=== PATIENT | male | born 1995 | race African-American/Black ===

== ENCOUNTER 2017-04-10 19:51 | Emergency (ER) | payer MEDICARE, OTHER ==
[~2017-04-10] VITALS: Ht 180.3 cm; Wt 59.9 kg
[2017-04-10] MEDS ORDERED: KETOROLAC 30 MG/ML VIAL. ONE (21:47)
[2017-04-10] MEDS ORDERED: diphenhydrAMINE 50 MG/ML VIAL ONE (21:49)
[2017-04-11 00:15] LABS: CALCIUM 8.3 mg/dL (8.5-10.1); CREATININE 0.6 mg/dL (0.7-1.3); GFR 168.5; POTASSIUM 4.3 mmol/L (3.5-5.1)
[2017-04-11] MEDS ORDERED: ALPRAZolam 0.25 MG TABLET PO ONE (00:15)
--- NOTE | 2017-04-11 01:24 | PHYS DOC ---
Adult General Chief Complaint Chief Complaint: SHORTNESS OF BREATH HPI HPI 22-year-old male with history of lupus now presents the emergency department complaining of anterior chest wall soreness reproducible with movement and palpation. Patient is requesting pain medicine. He denies shortness of breath. No exertional chest pain. Denies pleuritic pain. No productive cough or fever. Patient has no other complaints Review of Systems Review of Systems Constitutional: Denies fever or chills [] Eyes: Denies change in visual acuity, redness, or eye pain [] HENT: Denies nasal congestion or sore throat [] Respiratory: Denies cough or shortness of breath [] Cardiovascular: No additional information not addressed in HPI [] GI: Denies abdominal pain, nausea, vomiting, bloody stools or diarrhea [] : Denies dysuria or hematuria [] Musculoskeletal: Denies back pain or joint pain [] Integument: Denies rash or skin lesions [] Neurologic: Denies headache, focal weakness or sensory changes [] Endocrine: Denies polyuria or polydipsia [] All other systems were reviewed and found to be within normal limits, except as documented in this note. Current Medications Current Medications Current Medications Medications (Trade) Dose Ordered Sig/Oni Start Time Stop Time Status Last Admin Dose Admin Alprazolam (Xanax) 1 mg 1X ONCE 04/11/17 00:15 04/11/17 00:16 DC 04/11/17 00:20 1 MG Diphenhydramine HCl (Benadryl) 50 mg STK-MED ONCE 04/10/17 21:49 04/10/17 21:50 DC Ketorolac Tromethamine (Toradol) 30 mg STK-MED ONCE 04/10/17 21:47 04/10/17 21:48 DC Allergies Allergies Allergies Coded Allergies Type Severity Reaction Last Updated Verified NSAIDS (Non-Steroidal Anti-Inflamma Allergy Mild 04/10/17 Yes Physical Exam Physical Exam Well-appearing patient with butterfly malar rash, anterior chest wall with easily reproducible chest wall tenderness to light palpation. No bruising, rash , or crepitus. No bony tenderness or deformity Constitutional: Well developed, well nourished, no acute distress, non-toxic appearance. [] HENT: Normocephalic, atraumatic, bilateral external ears normal, oropharynx moist, no oral exudates, nose normal. [] Eyes: PERRLA, EOMI, conjunctiva normal, no discharge. [] Neck: Normal range of motion, no tenderness, supple, no stridor. [] Cardiovascular:Heart rate regular rhythm, no murmur [] Lungs & Thorax: Bilateral breath sounds clear to auscultation [] Abdomen: Bowel sounds normal, soft, no tenderness, no masses, no pulsatile masses. [] Skin: Warm, dry, no erythema, no rash. [] Back: No tenderness, no CVA tenderness. [] Extremities: No tenderness, no cyanosis, no clubbing, ROM intact, no edema. [] Neurologic: Alert and oriented X 3, normal motor function, normal sensory function, no focal deficits noted. [] Psychologic: Affect normal, judgement normal, mood normal. [] Current Patient Data Lab Results Laboratory Tests Test 04/10/17 23:39 Sodium Level 136 mmol/L (136-145) Potassium Level 4.3 mmol/L (3.5-5.1) Chloride Level 100 mmol/L (98-107) Carbon Dioxide Level 29 mmol/L (21-32) Anion Gap 7 (6-14) Blood Urea Nitrogen 17 mg/dL (8-26) Creatinine 0.6 mg/dL (0.7-1.3) L Estimated GFR (Cockcroft-Gault) 168.5 Glucose Level 97 mg/dL (70-99) Calcium Level 8.3 mg/dL (8.5-10.1) L EKG EKG EKG with normal sinus rhythm at 86 normal axis no STEMI[] interpreted by me Radiology/Procedures Radiology/Procedures Chest x-ray no acute disease interpreted by me[] Course & Med Decision Making Course & Med Decision Making Pertinent Labs and Imaging studies reviewed. (See chart for details) Signs and symptoms consistent with chest wall pain easily reproducible. Full workup unremarkable. She well-appearing and stable on reevaluation prior to discharge. No further workup or treatment indicated patient agrees with outpatient follow-up and strict return precautions given [] Dragon Disclaimer Dragon Disclaimer This electronic medical record was generated, in whole or in part, using a voice recognition dictation system. Departure Departure: Impression: Primary Impression: Chest wall pain Disposition: HOME, SELF-CARE Condition: IMPROVED Referrals: NON,STAFF (PCP) Patient Instructions: Chest Wall Pain, [id number] Additional Instructions: You've been experiencing chest wall pain. Your EKG chest x-ray and labs were unremarkable. Follow-up with your doctor in the morning and return immediately for new severe worsening symptoms JOAQUÍN CHAMPION MD Apr 11, 2017 01:24
[2017-04-11 01:28] VITALS: BP 142/96
[2017-04-11] MEDS ORDERED: IV NORMAL SALINE 1,000ML 1,000 ML IV ONE (04:45)
[2017-04-11] MEDS ORDERED: diphenhydrAMINE 50 MG/ML VIAL IVP ONE (04:45)
[2017-04-11] MEDS ORDERED: KETOROLAC 30 MG/ML VIAL. IV ONE (04:45)
--- NOTE | 2017-04-11 07:40 | RAD ---
2 views of the Chest 04/11/2017 2:05 AM Indication: chest pain Comparison: None Findings: There is no focal consolidation or infiltrate identified. There is no effusion or pneumothorax. The cardiomediastinal silhouette and pulmonary vasculature are within normal limits. No osseous abnormality is identified. Impression: No evidence of acute cardiopulmonary process.
== END 2017-04-11 01:28 | disposition home or self-care (01) ==
LOC: ER 19:51
DX: R07.89 Other chest pain (principal); Z88.6 Allergy status to analgesic agent
CPT/HCPCS: 36415; 71046; 80048; 96361; 96374; 96375; 99285; J1200; J1885; J7030

== ENCOUNTER 2017-04-21 14:35 | Emergency (ER) | payer OTHER ==
[2017-04-21] MEDS ORDERED: OXYC5TAB88 PO (14:54)
[2017-04-21] MEDS ORDERED: methylPREDNISolone SOD SUCC PF 125 MG/2 ML VIAL. IV ONE (15:00)
[2017-04-21] MEDS ORDERED: HYDROmorphone PF 1 MG/ML DISP.SYRIN IV ONE ×2 (15:00→17:45)
[2017-04-21] MEDS ORDERED: IV NORMAL SALINE 1,000ML 1,000 ML IV SCH (15:00)
[2017-04-21] MEDS ORDERED: HYDROmorphone PF 1 MG/ML DISP.SYRIN IM ONE (16:15)
[2017-04-21] MEDS ORDERED: methylPREDNISolone SOD SUCC PF 125 MG/2 ML VIAL. IM ONE (16:15)
[2017-04-21 16:28] LABS: ALBUMIN 2.6 g/dL (3.4-5.0); ALBUMIN/GLOBULIN RATIO 0.6 (1.0-1.7); C REACTIVE PROTEIN 145.3 mg/L (0-3.3); CREATININE 0.6 mg/dL (0.7-1.3); GFR 203.9; POTASSIUM 3.7 mmol/L (3.5-5.1); TOTAL BILIRUBIN 0.4 mg/dL (0.2-1.0); TOTAL PROTEIN 7.3 g/dL (6.4-8.2)
[2017-04-21 16:33] LABS: BASO % 1 % (0-3); EOS % 0 % (0-3); HEMATOCRIT 35.7 % (39.0-53.0); HEMOGLOBIN 11.4 g/dL (13.0-17.5); LYMPH # 0.4 x10^3/uL (1.0-4.8); LYMPH % 7 % (24-48); MEAN CORPUSCULAR HEMOGLOBIN 28 pg (25-35); MEAN CORPUSCULAR HGB CONC 32 g/dL (31-37); MEAN CORPUSCULAR VOLUME 86 fL (79-100); MONO # 0.3 x10^3/uL (0.0-1.1); MONO % 6 % (0-9); NEUT # 5.3 x10^3uL (1.8-7.7); NEUT % 87 % (31-73); PLATELET COUNT 197 x10^3/uL (140-400); RED BLOOD COUNT 4.16 x10^6/uL (4.30-5.70); WHITE BLOOD COUNT 6.1 x10^3/uL (4.0-11.0)
--- NOTE | 2017-04-21 17:25 | PHYS DOC ---
General Chief Complaint: ABDOMINAL PAIN Stated Complaint: ABD PAIN Time Seen by MD: 14:43 Source: patient Exam Limitations: no limitations Problems: History of Present Illness Initial Comments Patient is a 22-year-old male who comes to the ED complaining of abdominal pain. Patient states he has history of lupus and is having an exacerbation. He states for the past 2-3 days he's had generalized abdominal pain which has affected his appetite. He's had no fever chills nausea vomiting or diarrhea, last bowel movement was 2 days ago. PCP is Dr. La at [facility] patient is a vague historian. He reports taking prednisone 40 mg and oxycodone as his only daily medications, "I have an appointment with a Lupus specialist 6 months out. " He denies any focal abdominal pain complaints. He says typically his lupus exacerbations involved joint pains and swelling but 1-2 times yearly will develop abdominal symptoms identical to those he is having today. Records been requested from [facility]. ED vitals: 98.9, 110, 18, 130/99, 99% room air Timing/Duration: other Severity: severe Modifying Factors: worse with eating Associated Symptoms: other Allergies: Coded Allergies: NSAIDS (Non-Steroidal Anti-Inflamma (Verified Allergy, Mild, 04/21/17) Past Medical History Medical History: other (SLE) Surgical History: no surgical history Social History Smoker: cigarettes Alcohol: none Drugs: marijuana Review of Systems Constitutional: denies chills, denies diaphoresis, denies fever, malaise Respiratory: denies cough, denies shortness of breath, denies wheezing Cardiovascular: denies chest pain, denies palpitations, denies syncope Gastrointestinal: abdominal pain, denies constipation, denies diarrhea, denies nausea, denies vomiting Genitourinary: denies dysuria, denies frequency, denies hematuria Musculoskeletal: denies back pain, denies joint pain, denies joint swelling, denies neck pain Psychiatric/Neurological: denies headache, denies numbness, denies paresthesia , denies weakness Hematologic/Lymphatic: denies blood clots, denies easy bleeding, denies easy bruising Physical Exam General Appearance: no apparent distress, thin (pale) Eyes: bilateral eye normal inspection, bilateral eye PERRL, bilateral eye EOMI Ear, Nose, Throat: hearing grossly normal, normal ENT inspection, normal pharynx (dry membranes) Neck: non-tender (that he is calm and records as well as old February with), supple Respiratory: chest non-tender, normal breath sounds, no respiratory distress Cardiovascular: normal peripheral pulses, tachycardia Gastrointestinal: soft (generalized muscle tenderness no r/g/m, neg donohue/ mcburney, nondistended, BS normal) Rectal: deferred Back: no CVA tenderness, no vertebral tenderness Extremities: non-tender, normal inspection 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 No imaging indicated initially and not ordered. Pertinent labs: CRP 145.3, BUN 16, Cr 0.9, lactic acid 0.9, no urine initially. 1728: IV established, now comfortable with 1mg dilaudid IV. NS bolus initiated. Patient discussed with documentation specialist hospitalist Dr Dupont who requested patient be transferred to higher level of care due to possibility of need for specialist. 1737: I discussed the patient with documentation specialist hospitalist at [facility] Dr. Irizarry who accepts MedSurg patient for hydration, steroid therapy and analgesia. Impression: Lupus exacerbation Abdominal pain secondary to above Hypovolemia Chronic pain Departure Time of Disposition: 17:47 Disposition: 02 XFER SHT-TRM HOSP Condition: STABLE Additional Instructions: EMS transfer to [facility] for medsurg admission Dr Irizarry is accepting. MICHAEL OLMSTEAD DO Apr 21, 2017 17:25
[2017-04-21] MEDS ORDERED: MORPHINE SULFATE 4 MG/ML DISP.SYRIN. IV/SQ PRN (18:00)
[2017-04-21 18:17] VITALS: BP 137/82
[2017-04-21 20:16] LABS: AMPHETAMINE/METHAMPHETAMINE NEG (NEG); BARBITURATES NEG (NEG); BENZODIAZEPINES NEG (NEG); CANNABINOIDS POS (NEG); COCAINE POS (NEG); METHADONE NEG (NEG); OPIATES POS (NEG); PHENCYCLIDINE NEG (NEG)
== END 2017-04-21 20:27 | disposition short-term general hospital (02) ==
LOC: ER 14:35
DX: M32.9 Systemic lupus erythematosus, unspecified (principal); R10.84 Generalized abdominal pain; E86.1 Hypovolemia; G89.29 Other chronic pain; F17.210 Nicotine dependence, cigarettes, uncomplicated; F12.10 Cannabis abuse, uncomplicated; Z88.6 Allergy status to analgesic agent
CPT/HCPCS: 36415; 80053; 80307; 82550; 83605; 83690; 85025; 86140; 96361; 96372; 96374; 99285; J1170; J2930; G0479; J7030

== ENCOUNTER 2017-05-09 15:25 | Emergency (ER) | payer MEDICARE, OTHER ==
[~2017-05-09] VITALS: Ht 170.2 cm; Wt 68.0 kg
[~2017-05-09 15:25] MED LIST: OXYC5TAB88 PO
--- NOTE | 2017-05-09 16:29 | PHYS DOC ---
General Chief Complaint: ABDOMINAL PAIN Stated Complaint: ABDOMINAL PAIN Time Seen by MD: 15:33 Source: patient, old records Exam Limitations: no limitations Problems: History of Present Illness Initial Comments 22-year-old male history of lupus comes to the ED complaining of lupus exacerbation causing abdominal pain. Patient states that earlier today he developed generalized abdominal pain consistent with prior lupus exacerbations. He describes it as sharp and crampy generalized distribution causing decreased appetite. He denies nausea vomiting or diarrhea no fever chills sweats or body aches. He says typically his lupus exacerbations involve joint pains and swelling but 1-2 times yearly has exacerbations involving abdominal pain. Patient is disabled he lives with his father currently taking prednisone 40 mg daily. PCP is Dr. La at [facility] he states he has a rheumatology follow- up appointment scheduled for several months out. Patient was seen at this emergency department last month on April 21 for similar but worse symptoms. On that day he was transferred to [facility] where he was treated with steroids, analgesic medications, and IV fluids with good result and the patient was discharged home on April 21. Patient states that today's symptoms are not nearly as severe as those for which I saw him on April 21, he thinks that after some fluids steroids and pain medications he'll be able to go home. As such no labs or imaging studies will be ordered initially and the patient will receive Solu-Medrol 125 mg IV, Dilaudid 1 mg IV, and 1 L normal saline IV bolus. ED vital signs are stable Timing/Duration: 1-3 hours Severity: severe Modifying Factors: improves with other Associated Symptoms: other Allergies: Coded Allergies: NSAIDS (Non-Steroidal Anti-Inflamma (Verified Allergy, Mild, 04/21/17) Past Medical History Medical History: other (Lupus, hyperthyroidism) Surgical History: noncontributory Social History Smoker: non-smoker Alcohol: none Drugs: none Review of Systems Constitutional: denies chills, denies diaphoresis, denies fever, denies malaise Respiratory: denies cough, denies shortness of breath Cardiovascular: denies chest pain, denies palpitations Gastrointestinal: see HPI Genitourinary: denies dysuria, denies frequency, denies hematuria Musculoskeletal: see HPI Psychiatric/Neurological: denies headache, denies numbness, denies paresthesia Physical Exam General Appearance: no apparent distress (thin, pale, face peeling patient states due to sunburn) Eyes: bilateral eye PERRL, bilateral eye EOMI, bilateral eye other ( conjunctivae injected bilaterally) Ear, Nose, Throat: hearing grossly normal, normal ENT inspection, normal pharynx Neck: non-tender, supple Respiratory: normal breath sounds, no respiratory distress Cardiovascular: normal peripheral pulses, regular rate, rhythm Gastrointestinal: normal bowel sounds, non tender, soft Back: no CVA tenderness, no vertebral tenderness Extremities: normal range of motion, non-tender 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 His color has improved with IV hydration will discharge home. Departure Time of Disposition: 17:53 Disposition: 01 HOME, SELF-CARE Diagnosis: abdominal pain, lupus exacerbation Condition: IMPROVED Patient Instructions: Abdominal Pain (Nonspecific), Lupus Additional Instructions: Please review the patient education materials given by ED staff. Aggressive hydration with Gatorade and water. Continue current medications. [id number] stool softeners to avoid constipation. Follow-up with Dr. Bazan tomorrow for recheck. Return to ED with new or changing symptoms. MICHAEL OLMSTEAD DO May 09, 2017 16:29
[2017-05-09] MEDS ORDERED: HYDROmorphone PF 1 MG/ML DISP.SYRIN IV/SQ PRN (16:30)
[2017-05-09] MEDS ORDERED: IV NORMAL SALINE 1,000ML 1,000 ML IV SCH (16:30)
[2017-05-09] MEDS ORDERED: methylPREDNISolone SOD SUCC PF 125 MG/2 ML VIAL. IV ONE (16:30)
[2017-05-09] MEDS ORDERED: HYDROmorphone PF 2 MG/ML VIAL ONE (16:45)
[2017-05-09 18:20] VITALS: BP 139/87
== END 2017-05-09 18:25 | disposition home or self-care (01) ==
LOC: ER 15:25
DX: M32.9 Systemic lupus erythematosus, unspecified (principal); E05.90 Thyrotoxicosis, unspecified without thyrotoxic crisis or storm; Z88.6 Allergy status to analgesic agent
CPT/HCPCS: 96361; 96374; 96375; 99284; J1170; J2930; J7030

== ENCOUNTER 2017-06-14 21:39 | Emergency (ER) | payer OTHER ==
[~2017-06-14] VITALS: Ht 170.2 cm; Wt 61.8 kg
--- NOTE | 2017-06-14 21:56 | ED.ADGEN ---
Past History Past Medical History: Hyperthyroid, Other Past Surgical History: No Surgical History Alcohol Use: Rarely Drug Use: None, Marijuana Adult General Chief Complaint Chief Complaint " I am having an allergic reactions...".. " I have lupus and sometimes I get reactions to NSAIDs... I took some arthritis meds and got these hives..." HPI HPI Patient is a 22 year old male who presents with above hx Lupus. Pt. reports allergic reaction to NSAIDs. Pt currently complaints of hive like reactions after taking some arthritic meds. Patient denies ingestion of any other meds. No recent travel. No specific history of immunosuppression. Other than Lupus. Review of Systems Review of Systems Constitutional: Denies fever or chills [] Eyes: Denies change in visual acuity, redness, or eye pain [] HENT: Denies nasal congestion or sore throat [] Respiratory: Denies cough or shortness of breath [] Cardiovascular: No additional information not addressed in HPI [] GI: Denies abdominal pain, nausea, vomiting, bloody stools or diarrhea [] : Denies dysuria or hematuria [] Musculoskeletal: Denies back pain or joint pain [] Integument: Complains of rash Neurologic: Denies headache, focal weakness or sensory changes [] Endocrine: Denies polyuria or polydipsia [] All other systems were reviewed and found to be within normal limits, except as documented in this note. Family History Family History Noncontributory Current Medications Current Medications Current Medications Medications (Trade) Dose Ordered Sig/Oni Start Time Stop Time Status Last Admin Dose Admin Diphenhydramine HCl (Benadryl) 50 mg 1X ONCE 06/14/17 22:30 06/14/17 22:31 DC 06/14/17 22:15 50 MG Famotidine (Pepcid Vial) 20 mg 1X ONCE 06/15/17 00:30 06/15/17 00:31 DC 06/15/17 01:09 20 MG Famotidine (Pepcid) 20 mg 1X ONCE 06/14/17 22:30 06/14/17 22:31 DC Lactated Ringer's 1,000 ml @ 1,000 mls/hr 1X ONCE 06/14/17 23:30 06/15/17 00:29 DC 06/14/17 23:32 1,000 MLS/HR Magnesium Hydroxide (Milk Of Magnesia) 2,400 mg 1X ONCE 06/14/17 23:00 06/14/17 23:01 DC 06/14/17 23:31 2,400 MG Methylprednisolone Sodium Succinate (SOLU-Medrol 125MG VIAL) 125 mg 1X ONCE 06/14/17 22:30 06/14/17 22:31 DC 06/14/17 22:15 125 MG Morphine Sulfate (Morphine 10mg Syringe) 10 mg 1X ONCE 06/14/17 23:00 06/14/17 23:01 DC 06/14/17 23:32 10 MG Sodium Chloride 1,000 ml @ 1,000 mls/hr 1X ONCE 06/15/17 01:30 06/15/17 02:28 DC 06/15/17 01:10 1,000 MLS/HR See nursing for home meds Allergies Allergies Allergies Coded Allergies Type Severity Reaction Last Updated Verified NSAIDS (Non-Steroidal Anti-Inflamma Allergy Mild 04/21/17 Yes lisinopril Allergy Unknown 06/14/17 Yes Physical Exam Physical Exam Constitutional: moderate distress, non-toxic appearance. [] HENT: Normocephalic, atraumatic, bilateral external ears normal, oropharynx moist, no oral exudates, nose rhinorrhea. Eyes: PERRLA, EOMI, conjunctiva normal, no discharge. [] Neck: Normal range of motion, no tenderness, supple, no stridor. [] Cardiovascular:Heart rate regular rhythm, no murmur [] Lungs & Thorax: Bilateral breath sounds few scattered wheezes on auscultation [] Abdomen: Bowel sounds normal, soft, no tenderness, no masses, no pulsatile masses. [] Skin: Warm, dry, no erythema, hives and eczema. Back: No tenderness, no CVA tenderness. [] Extremities: No tenderness, no cyanosis, no clubbing, ROM intact, no edema. [] Neurologic: Alert and oriented X 3, normal motor function, normal sensory function, no focal deficits noted. [] Psychologic: Affect normal, judgement normal, mood normal. [] Current Patient Data Vital Signs Vital Signs Date Time Temp Pulse Resp B/P (MAP) Pulse Ox O2 Delivery O2 Flow Rate FiO2 06/14/17 21:39 97.7 103 16 100 Room Air Lab Results Laboratory Tests Test 06/15/17 00:59 06/15/17 01:01 Urine Collection Type Unknown Urine Color Yellow Urine Clarity Clear Urine pH 7.0 Urine Specific Siren 1.020 Urine Protein >100 mg/dl (NEG-TRACE) Urine Glucose (UA) Neg mg/dL (NEG) Urine Ketones (Stick) Neg mg/dL (NEG) Urine Blood Neg (NEG) Urine Nitrite Neg (NEG) Urine Bilirubin Neg (NEG) Urine Urobilinogen Dipstick 2 mg/dL (0.2 mg/dL) Urine Leukocyte Esterase Neg (NEG) Urine RBC 0 /HPF (0-2) Urine WBC 1-4 /HPF (0-4) Urine Squamous Epithelial Cells Few /LPF Urine Bacteria 0 /HPF (0-FEW) Urine Opiates Screen Pos (NEG) Urine Methadone Screen Neg (NEG) Urine Barbiturates Neg (NEG) Urine Phencyclidine Screen (NEG) Urine Amphetamine/Methamphetamine Neg (NEG) Urine Benzodiazepines Screen Neg (NEG) Urine Cocaine Screen Pos (NEG) Urine Cannabinoids Screen Pos (NEG) Urine Ethyl Alcohol Neg (NEG) White Blood Count 3.8 x10^3/uL (4.0-11.0) L Red Blood Count 4.12 x10^6/uL (4.30-5.70) L Hemoglobin 11.3 g/dL (13.0-17.5) L Hematocrit 34.7 % (39.0-53.0) L Mean Corpuscular Volume 84 fL (79-100) Mean Corpuscular Hemoglobin 27 pg (25-35) Mean Corpuscular Hemoglobin Concent 33 g/dL (31-37) Red Cell Distribution Width 17.8 % (11.5-14.5) H Platelet Count 117 x10^3/uL (140-400) L Neutrophils (%) (Auto) 90 % (31-73) H Lymphocytes (%) (Auto) 6 % (24-48) L Monocytes (%) (Auto) 3 % (0-9) Eosinophils (%) (Auto) 1 % (0-3) Basophils (%) (Auto) 1 % (0-3) Neutrophils # (Auto) 3.4 x10^3uL (1.8-7.7) Lymphocytes # (Auto) 0.2 x10^3/uL (1.0-4.8) L Monocytes # (Auto) 0.1 x10^3/uL (0.0-1.1) Eosinophils # (Auto) 0.0 x10^3/uL (0.0-0.7) Basophils # (Auto) 0.0 x10^3/uL (0.0-0.2) Erythrocyte Sedimentation Rate 48 (0-15) H Sodium Level 134 mmol/L (136-145) L Potassium Level 3.5 mmol/L (3.5-5.1) Chloride Level 99 mmol/L (98-107) Carbon Dioxide Level 27 mmol/L (21-32) Anion Gap 8 (6-14) Blood Urea Nitrogen 10 mg/dL (8-26) Creatinine 0.6 mg/dL (0.7-1.3) L Estimated GFR (Cockcroft-Gault) 203.9 Glucose Level 90 mg/dL (70-99) Calcium Level 8.2 mg/dL (8.5-10.1) L Total Bilirubin 0.3 mg/dL (0.2-1.0) Direct Bilirubin 0.1 mg/dL (0.0-0.2) Aspartate Amino Transferase (AST) 19 U/L (15-37) Alanine Aminotransferase (ALT) 9 U/L (16-63) L Alkaline Phosphatase 60 U/L (46-116) Total Protein 6.5 g/dL (6.4-8.2) Albumin 2.3 g/dL (3.4-5.0) L EKG EKG [] Radiology/Procedures Radiology/Procedures [] Course & Med Decision Making Course & Med Decision Making Pertinent Labs and Imaging studies reviewed. (See chart for details) Labs - need to be redrawn- 0030 hrs. specimens hemolyzed. Patient to take prednisone 50 mg a day for 5 days. Patient takes Zantac 50 mg twice day for 10 days. Patient follow-up primary care. Patient review ED labs with primary. [] Final Impression Final Impression 1. Allergic Reaction[] 2. Hx Lupus 3. Hx Polysubstance Abuse 4. Pancytopenia WBC3.8, Hgb 11.3, Plate. 117. 5. Malnutrition- alb. 2.3 6. Eczema Problems: Dragon Disclaimer Dragon Disclaimer This electronic medical record was generated, in whole or in part, using a voice recognition dictation system. WILLI SIEGEL MD Jun 14, 2017 21:56
[2017-06-14] MEDS ORDERED: methylPREDNISolone SOD SUCC PF 125 MG/2 ML VIAL. IV ONE (22:30)
[2017-06-14] MEDS ORDERED: FAMOTIDINE 20 MG TABLET PO ONE (22:30)
[2017-06-14] MEDS ORDERED: diphenhydrAMINE 50 MG/ML VIAL IV ONE (22:30)
[2017-06-14] MEDS ORDERED: MAGNESIUM HYDROXIDE 2,400 MG/30 ML ORAL.SUSP. PO ONE (23:00)
[2017-06-14] MEDS ORDERED: MORPHINE SULFATE 10 MG/ML SYRINGE. SQ ONE (23:00)
[2017-06-14] MEDS ORDERED: IV RINGERS SOLUTION,LACTATED 1,000 ML IV ONE (23:30)
[2017-06-15] MEDS ORDERED: PRED50TA PO (00:29)
[2017-06-15] MEDS ORDERED: RANI150T6 PO (00:29)
[2017-06-15] MEDS ORDERED: FAMOTIDINE 20 MG/2 ML VIAL IVP ONE (00:30)
[2017-06-15 01:23] LABS: BASO % 1 % (0-3); EOS % 1 % (0-3); HEMATOCRIT 34.7 % (39.0-53.0); HEMOGLOBIN 11.3 g/dL (13.0-17.5); LYMPH # 0.2 x10^3/uL (1.0-4.8); LYMPH % 6 % (24-48); MEAN CORPUSCULAR HEMOGLOBIN 27 pg (25-35); MEAN CORPUSCULAR HGB CONC 33 g/dL (31-37); MEAN CORPUSCULAR VOLUME 84 fL (79-100); MONO # 0.1 x10^3/uL (0.0-1.1); MONO % 3 % (0-9); NEUT # 3.4 x10^3uL (1.8-7.7); NEUT % 90 % (31-73); PLATELET COUNT 117 x10^3/uL (140-400); RED BLOOD COUNT 4.12 x10^6/uL (4.30-5.70); RED CELL DISTRIBUTION WIDTH 17.8 % (11.5-14.5); WHITE BLOOD COUNT 3.8 x10^3/uL (4.0-11.0)
[2017-06-15] MEDS ORDERED: IV NORMAL SALINE 1,000ML 1,000 ML IV ONE (01:30)
[2017-06-15 01:32] LABS: ALBUMIN 2.3 g/dL (3.4-5.0); CALCIUM 8.2 mg/dL (8.5-10.1); CREATININE 0.6 mg/dL (0.7-1.3); DIRECT BILIRUBIN 0.1 mg/dL (0.0-0.2); GFR 203.9; POTASSIUM 3.5 mmol/L (3.5-5.1); TOTAL BILIRUBIN 0.3 mg/dL (0.2-1.0); TOTAL PROTEIN 6.5 g/dL (6.4-8.2)
[2017-06-15 01:37] LABS: BILIRUBIN,URINE NEG (NEG); CLARITY,URINE CLEAR; COLOR,URINE YELLOW; GLUCOSE,URINE NEG (NEG); NITRITE,URINE NEG (NEG); UROBILINOGEN,URINE 2 mg/dL (0.2 mg/dL)
[2017-06-15 01:38] LABS: BACTERIA,URINE 0 /HPF (0-FEW); RBC,URINE 0 /HPF (0-2); SQUAMOUS EPITHELIAL CELL,UR FEW /LPF
[2017-06-15 01:40] LABS: AMPHETAMINE/METHAMPHETAMINE NEG (NEG); BARBITURATES NEG (NEG); BENZODIAZEPINES NEG (NEG); CANNABINOIDS POS (NEG); COCAINE POS (NEG); METHADONE NEG (NEG); OPIATES POS (NEG)
[2017-06-15 02:19] VITALS: BP 127/81
[2017-06-15 02:20] LABS: SEDIMENTATION RATE 48 (0-15)
== END 2017-06-15 02:25 | disposition home or self-care (01) ==
LOC: ER 21:39
DX: L30.9 Dermatitis, unspecified (principal); T50.995A Adverse effect of other drugs, medicaments and biological substances, initial encounter; F19.10 Other psychoactive substance abuse, uncomplicated; D61.818 Other pancytopenia; E46 Unspecified protein-calorie malnutrition; E05.90 Thyrotoxicosis, unspecified without thyrotoxic crisis or storm; F12.10 Cannabis abuse, uncomplicated; Z68.23 Body mass index [BMI] 23.0-23.9, adult; Z88.6 Allergy status to analgesic agent; Z88.8 Allergy status to other drugs, medicaments and biological substances; Y92.89 Other specified places as the place of occurrence of the external cause
CPT/HCPCS: 36415; 80048; 80076; 80307; 81001; 85025; 85651; 96361; 96372; 96374; 96375; 99284; J1200; J2270; J2930; J7120; S0028; G0479; J7030

== ENCOUNTER 2017-07-07 15:36 | Emergency (ER) | payer OTHER ==
[~2017-07-07 15:36] MED LIST changes: +PRED50TA PO; +RANI150T21 PO
[2017-07-07] MEDS ORDERED: IV NORMAL SALINE 1,000ML 1,000 ML IV SCH (15:47)
[2017-07-07] MEDS ORDERED: IOHEXOL 240 MG/ML 50ML VIAL. ONE (15:50)
--- NOTE | 2017-07-07 15:55 | PHYS DOC ---
Past History Past Medical History: Hypertension, Hyperthyroid, Other Additional Past Medical Histor: Lupus Past Surgical History: No Surgical History Alcohol Use: Rarely Drug Use: Cocaine, Marijuana Adult General Chief Complaint Chief Complaint: ABDOMINAL PAIN HPI HPI Patient is a 22-year-old male who presents to the emergency department for evaluation. He states that he has a history of lupus, and was hospitalized about a week ago at [facility] for pneumonia. He states that he is taking antibiotics as well as prednisone, currently on 40 mg daily, and states he began having some generalized abdominal pain today. He has not had any vomiting but has had some nauseousness. He states he thought recently felt hungry so he ate a cheeseburger, but this did not help his pain. He has had similar episodes of abdominal discomfort related to his lupus flares in the past. He states he had a normal bowel movement with a small amount of blood when cleaning himself after having his bowel movement today. He denies any dizziness or lightheadedness, fevers, chills, has not had any significant shortness of breath. He does have a mild residual cough. He is uncertain of the name of the antibiotic that he is currently taking. There are no alleviating, or exacerbating factors to his symptoms. Review of Systems Review of Systems Constitutional: Denies fever or chills [] Eyes: Denies change in visual acuity, redness, or eye pain [] HENT: Denies nasal congestion or sore throat [] Respiratory: Positive for residual reported cough and recent pneumonia. Denies shortness of breath [] Cardiovascular: The patient denies any shortness of breath, chest pain, palpitations, or orthopnea [] GI: Per history of present illness[] : Denies dysuria or hematuria [] Musculoskeletal: Denies back pain or joint pain [] Integument: Denies rash or skin lesions [] Neurologic: Denies headache, focal weakness or sensory changes [] Endocrine: Denies polyuria or polydipsia [] All other systems were reviewed and found to be within normal limits, except as documented in this note. Current Medications Current Medications Current Medications Medications (Trade) Dose Ordered Sig/Oni Start Time Stop Time Status Last Admin Dose Admin Multi-Ingredient Mouthwash/Gargle (Gi Cocktail) 20 ml 1X ONCE 07/07/17 16:10 07/07/17 16:11 Sodium Chloride 1,000 ml @ 1,000 mls/hr Q1H 07/07/17 15:47 07/07/17 16:46 Allergies Allergies Allergies Coded Allergies Type Severity Reaction Last Updated Verified NSAIDS (Non-Steroidal Anti-Inflamma Allergy Mild 04/21/17 Yes lisinopril Allergy Unknown 06/14/17 Yes Physical Exam Physical Exam PHYSICAL EXAM: CONSTITUTIONAL: Well developed, well nourished HEAD: normocephalic, atraumatic EENT: PERRL, EOMI. Conjunctivae normal color, sclerae non-icteric; moist mucous membranes. NECK: Supple, non-tender; no meningismus. LUNGS: Lungs CTA, breathing even and unlabored. Normal air movement. HEART: Regular rate and rhythm, no murmur CHEST: No deformity; non-tender ABDOMEN: The abdomen is soft, normal bowel sounds are present, there is mild diffuse tenderness to palpation of the abdomen without focal tenderness, rebound , or guarding. EXTREM: Normal ROM; no deformity, no calf tenderness. Normal pulses palpable in all extremities. There is no pedal edema. SKIN: No rash; no diaphoresis NEURO: Alert; normal speech and cognition; CN's grossly intact; strength grossly intact without focal deficit. BACK: No CVA TTP. EKG EKG [] Radiology/Procedures Radiology/Procedures PROCEDURE: CT ABD PELV W/ORAL&IV CONTRAST CT Abdomen and Pelvis With Intravenous Contrast: History: Left abdominal pain, onset this morning, lupus. Comparison: None. Technique: After administration of oral and intravenous contrast, 75 mL Omnipaque-300, CT of the abdomen and pelvis was performed. Exposure: One or more of the following individualized dose reduction techniques were utilized for this examination: 1. Automated exposure control 2. Adjustment of the mA and/or kV according to patient size 3. Use of iterative reconstruction technique Findings: Liver, spleen, pancreas, and bilateral adrenal glands unremarkable. Differential density seen in the gallbladder, could represent fine gallstones versus sludge. Bilateral kidneys enhance symmetrically. Urinary bladder is unremarkable. No bowel obstruction or inflammation is identified. Appendix is without evidence of inflammation. No free air or free fluid is seen in the abdomen or pelvis. Impression: 1. No acute abnormality identified in the abdomen or pelvis. 2. Possible gallbladder sludge versus gallstones. No evidence of cholecystitis. Course & Med Decision Making Course & Med Decision Making Pertinent Labs and Imaging studies reviewed. (See chart for details) 5:45 PM: The patient's condition remained stable. His abdomen has been reexamined and his discomfort has improved. He does not have any focal right upper quadrant tenderness to palpation. I discussed eating a bland diet, the need for close follow-up with his primary care provider and lupus physician, both of whom he sees locally, and we discussed return precautions. He will continue to use his previously prescribed oxycodone as needed for pain. Dragon Disclaimer Dragon Disclaimer This electronic medical record was generated, in whole or in part, using a voice recognition dictation system. Departure Departure: Impression: Primary Impression: Abdominal pain Additional Impression: Lupus Disposition: 01 HOME, SELF-CARE Condition: STABLE Referrals: PCP,JOSE (PCP) Patient Instructions: Abdominal Pain, Lupus Problem Qualifiers NATIVIDAD NG MD July 07, 2017 15:55
[2017-07-07] MEDS ORDERED: IOHEXOL 300 MG/ML 75 ML VIAL. IV ONE (16:00)
[2017-07-07] MEDS ORDERED: LIDO:MAALOX 1:1 20 ML SINGLE DOSE. PO ONE (16:10)
[2017-07-07 16:41] LABS: BASO % 0 % (0-3); EOS % 0 % (0-3); HEMATOCRIT 36.2 % (39.0-53.0); LYMPH # 0.4 x10^3/uL (1.0-4.8); LYMPH % 5 % (24-48); MEAN CORPUSCULAR HEMOGLOBIN 28 pg (25-35); MEAN CORPUSCULAR HGB CONC 33 g/dL (31-37); MEAN CORPUSCULAR VOLUME 86 fL (79-100); MONO # 0.1 x10^3/uL (0.0-1.1); MONO % 1 % (0-9); NEUT # 7.6 x10^3uL (1.8-7.7); NEUT % 94 % (31-73); PLATELET COUNT 218 x10^3/uL (140-400); RED BLOOD COUNT 4.24 x10^6/uL (4.30-5.70); RED CELL DISTRIBUTION WIDTH 17.9 % (11.5-14.5); WHITE BLOOD COUNT 8.1 x10^3/uL (4.0-11.0)
[2017-07-07 16:45] LABS: ALBUMIN 3.1 g/dL (3.4-5.0); ALBUMIN/GLOBULIN RATIO 0.7 (1.0-1.7); CALCIUM 8.8 mg/dL (8.5-10.1); CREATININE 0.7 mg/dL (0.7-1.3); GFR 170.6; POTASSIUM 3.5 mmol/L (3.5-5.1); TOTAL BILIRUBIN 0.3 mg/dL (0.2-1.0); TOTAL PROTEIN 7.8 g/dL (6.4-8.2)
--- NOTE | 2017-07-07 17:07 | RAD ---
CT Abdomen and Pelvis With Intravenous Contrast: History: Left abdominal pain, onset this morning, lupus. Comparison: None. Technique: After administration of oral and intravenous contrast, 75 mL Omnipaque-300, CT of the abdomen and pelvis was performed. Exposure: One or more of the following individualized dose reduction techniques were utilized for this examination: 1. Automated exposure control 2. Adjustment of the mA and/or kV according to patient size 3. Use of iterative reconstruction technique Findings: Liver, spleen, pancreas, and bilateral adrenal glands unremarkable. Differential density seen in the gallbladder, could represent fine gallstones versus sludge. Bilateral kidneys enhance symmetrically. Urinary bladder is unremarkable. No bowel obstruction or inflammation is identified. Appendix is without evidence of inflammation. No free air or free fluid is seen in the abdomen or pelvis. Impression: 1. No acute abnormality identified in the abdomen or pelvis. 2. Possible gallbladder sludge versus gallstones. No evidence of cholecystitis. Electronically signed by: Randell Conteh MD (07/07/2017 5:04 PM) [id number]
[2017-07-07 17:36] LABS: AMPHETAMINE/METHAMPHETAMINE NEG (NEG); BARBITURATES NEG (NEG); BENZODIAZEPINES NEG (NEG); CANNABINOIDS POS (NEG); COCAINE POS (NEG); METHADONE NEG (NEG); OPIATES POS (NEG); PHENCYCLIDINE NEG (NEG)
[2017-07-07 17:42] LABS: BACTERIA,URINE 0 /HPF (0-FEW); BILIRUBIN,URINE NEG (NEG); CLARITY,URINE CLEAR; COLOR,URINE YELLOW; GLUCOSE,URINE NEG (NEG); NITRITE,URINE NEG (NEG); SQUAMOUS EPITHELIAL CELL,UR FEW /LPF; UROBILINOGEN,URINE 0.2 mg/dL (0.2 mg/dL)
[2017-07-07 18:00] VITALS: BP 152/97
== END 2017-07-07 18:00 | disposition home or self-care (01) ==
LOC: ER 15:36
DX: M32.9 Systemic lupus erythematosus, unspecified (principal); E05.90 Thyrotoxicosis, unspecified without thyrotoxic crisis or storm; I10 Essential (primary) hypertension; F12.10 Cannabis abuse, uncomplicated; F14.10 Cocaine abuse, uncomplicated; Z88.6 Allergy status to analgesic agent; Z88.8 Allergy status to other drugs, medicaments and biological substances
CPT/HCPCS: 36415; 74177; 80053; 80307; 81001; 83605; 83690; 85025; 99285; Q9967; G0479; J7030